=== PATIENT | male | born 1960 | race Native Hawaiian/Other Pacific Islander ===

== ENCOUNTER 2017-02-08 14:39 | Outpatient (CLI) | payer BC ==
[~2017-02-08 14:39] MED LIST: BUT/APAP/CA1 PO; LEVO0.0723 PO
== END 2017-02-08 19:17 | disposition home or self-care (01) ==
LOC: RAD 14:39
DX: M25.561 Pain in right knee (principal)

== ENCOUNTER 2019-02-06 13:11 | Outpatient (CLI) | payer BC | END 2019-02-06 19:25 | disposition home or self-care (01) | LOC: RAD 13:11 | DX: M25.562 Pain in left knee (principal) ==

== ENCOUNTER 2020-05-03 12:24 | Observation (INO) | payer BC ==
[~2020-05-03] VITALS: Ht 182.9 cm; Wt 105.9 kg
[2020-05-03 13:52] LABS: PLATELET COUNT 228 K/uL (142-355)
[2020-05-03 14:00] LABS: POTASSIUM 4.2 mmol/L (3.6-5.2)
[2020-05-03 14:01] VITALS: BP 117/78; TEMP 97.8; Ht 182.9 cm; Wt 105.9 kg
[2020-05-03 16:00] VITALS: BP 125/70; TEMP 98.1
[2020-05-03] MEDS ORDERED: PANTOPRAZOLE 40MG TA PO (17:28)
[2020-05-03] MEDS ORDERED: CARAFATE1 GM PO (17:28)
== END 2020-05-03 18:08 | disposition home or self-care (01) ==
LOC: MED/SURG 12:24
PROVIDERS: ADMIT Internal Medicine Endocrinology, Diabetes & Metabolism; ATTEND Internal Medicine Endocrinology, Diabetes & Metabolism
DX: R10.13 Epigastric pain (principal); E03.8 Other specified hypothyroidism; E78.49 Other hyperlipidemia
CPT/HCPCS: 80053; 81000; 83690; 85027; 96365; 99220; G0378; G0379; J1650; Q9963

== ENCOUNTER 2020-05-11 07:44 | Outpatient (CLI) | payer BC ==
[~2020-05-11 07:44] MED LIST changes: +CARAFATE1 GM PO; +PANTOPRAZOLE 40MG TA PO
== END 2020-05-11 19:52 | disposition home or self-care (01) ==
LOC: NM 07:44
PROVIDERS: ATTEND Internal Medicine
DX: K82.8 Other specified diseases of gallbladder (principal)
CPT/HCPCS: A9537

== ENCOUNTER 2020-06-03 16:04 | Outpatient (CLI) | payer BC | END 2020-06-03 23:59 | disposition home or self-care (01) | LOC: RAD 16:04 | PROVIDERS: ATTEND Orthopaedic Surgery | DX: M25.561 Pain in right knee (principal) ==

== ENCOUNTER 2020-11-07 15:25 | Outpatient (CLI) | payer BC | END 2020-11-07 17:00 | disposition home or self-care (01) | LOC: RAD 15:25 | PROVIDERS: ATTEND Physician Assistant | DX: M25.562 Pain in left knee (principal) ==

== ENCOUNTER 2021-02-07 16:00 | Outpatient (CLI) | payer BC | END 2021-02-07 20:18 | disposition home or self-care (01) | LOC: RAD 16:00 | PROVIDERS: ATTEND Orthopaedic Surgery | DX: M25.562 Pain in left knee (principal) ==

== ENCOUNTER 2021-09-25 11:07 | Outpatient (CLI) | payer BC ==
[2021-09-25 11:34] LABS: PLATELET COUNT 258 K/uL (142-355)
[2021-09-25 11:39] LABS: POTASSIUM 3.8 mmol/L (3.6-5.2)
== END 2021-09-25 19:02 | disposition home or self-care (01) ==
LOC: LABW 11:07
PROVIDERS: ATTEND Internal Medicine
DX: R30.0 Dysuria (principal); K29.00 Acute gastritis without bleeding
CPT/HCPCS: 36415; 80053; 82150; 83630; 83690; 85027; 86677; 87324; 87449; 87507

== ENCOUNTER 2022-01-18 16:29 | Outpatient (CLI) | payer BC | END 2022-01-18 19:36 | disposition home or self-care (01) | LOC: RAD 16:29 | PROVIDERS: ATTEND Orthopaedic Surgery | DX: M25.561 Pain in right knee (principal); M25.562 Pain in left knee ==